=== PATIENT | female | born 1945 | race Caucasian/White ===

== ENCOUNTER → 2016-11-21 | Outpatient (CLI) | payer MEDICARE ==
--- NOTE | 2016-11-24 09:10 | Diagnostic Imaging Report ---
Bilateral screening mammogram. The current study was also evaluated with a Computer Aided Detection (CAD) system. INDICATION: Screening. No current complaints stated on the questionnaire. COMPARISON: None. This is a baseline exam. FINDINGS: The breasts are composed of heterogeneously dense parenchyma which may decrease mammographic sensitivity. There is a focal asymmetry in the upper aspect of the right breast slightly medially. It is a vague density less than 1 cm in size. There are benign-appearing calcifications seen bilaterally. No suspicious mass or cluster of calcifications seen in the left breast. IMPRESSION: Focal compression views and ultrasound evaluation for upper right breast focal asymmetry is recommended. ACR BI-RADS Category 0: Incomplete. (Needs additional imaging evaluation). Result letter will be mailed to the patient. Note: At least 10% of breast cancer is not imaged by mammography. Dictated by: Dictated on workstation # [id number]
== END ==
LOC: RAD 13:54
PROVIDERS: ATTEND Family Medicine
DX: Z12.31 Encounter for screening mammogram for malignant neoplasm of breast (principal)
CPT/HCPCS: 77067

== ENCOUNTER → 2016-11-24 | Outpatient (CLI) | payer MEDICARE ==
--- NOTE | 2016-11-24 12:09 | Diagnostic Imaging Report ---
PROCEDURE: US abdomen complete. TECHNIQUE: Multiple real-time grayscale images were obtained over the abdomen in various projections. INDICATION: Elevated liver enzymes. FINDINGS: The visualized portions of the pancreas appear unremarkable. The liver is mildly enlarged measuring 23 cm in diagonal craniocaudal dimension. There is no focal mass seen. The gallbladder demonstrates hyperechogenicity and significant shadowing compatible with stones. The gallbladder wall is minimally thickened at 3.3 mm without pericholecystic fluid. The CBD is obscured by bowel gas. The spleen is 11.3 cm in length, normal. The abdominal aorta is obscured by bowel gas. The visualized portion of the IVC appears unremarkable. The right kidney is 11.0 cm, and the left kidney is 13.2 cm in length. There is suggestion of a duplicated renal collecting system in the left kidney with no hydronephrosis. No fluid collection or ascites in the abdomen is seen. Sonographic Figueroa sign is reportedly negative. IMPRESSION: 1. Findings suggestive of gallbladder impacted with stones with no evidence of acute cholecystitis. 2. Hepatomegaly. Dictated by: Dictated on workstation # [id number]
== END ==
LOC: RAD 07:37
PROVIDERS: ATTEND Family Medicine
DX: R94.5 Abnormal results of liver function studies (principal); K80.20 Calculus of gallbladder without cholecystitis without obstruction; R16.0 Hepatomegaly, not elsewhere classified
CPT/HCPCS: 76700

== ENCOUNTER 2016-12-21 08:42 | Outpatient (CLI) | payer MEDICARE ==
[~2016-12-21] VITALS: Ht 161.3 cm; Wt 123.4 kg
[2016-12-21 08:54] VITALS: BP 162/72
[2016-12-21] MEDS ORDERED: METF500T4 PO (09:05)
[2016-12-21] MEDS ORDERED: SPIR25TA3 PO (09:05)
[2016-12-21 09:29] LABS: BASOPHILS # (AUTO) 0.1 10^3/uL (0.0-0.1); BASOPHILS % (AUTO) 1 % (0-10); EOSINOPHILS # (AUTO) 0.2 10^3/uL (0.0-0.3); EOSINOPHILS % (AUTO) 3 % (0-10); LYMPHOCYTES # (AUTO) 2.8 X 10^3 (1.0-4.0); LYMPHOCYTES % (AUTO) 33 % (12-44); MEAN CORPUSCULAR HEMOGLOBIN 31 PG (25-34); MEAN CORPUSCULAR HGB CONC 32 G/DL (32-36); MEAN CORPUSCULAR VOLUME 96 FL (80-99); MEAN PLATELET VOLUME 10.3 FL (7.4-10.4); MONOCYTES # (AUTO) 0.9 X 10^3 (0.0-1.0); MONOCYTES % (AUTO) 10 % (0-12); NEUTROPHILS # (AUTO) 4.4 X 10^3 (1.8-7.8); NEUTROPHILS % (AUTO) 53 % (42-75); PLATELET COUNT 283 10^3/uL (130-400); RED BLOOD COUNT 3.58 10^6/uL (4.35-5.85); RED CELL DISTRIBUTION WIDTH 12.4 % (10.0-14.5); WHITE BLOOD COUNT 8.3 10^3/uL (4.3-11.0)
[2016-12-21 09:45] LABS: CALCIUM 9.7 MG/DL (8.5-10.1); CREATININE SERUM 1.16 MG/DL (0.60-1.30); POTASSIUM 4.8 MMOL/L (3.6-5.0)
[2016-12-21] MEDS ORDERED: INSU100V31 IJ (13:14)
[2016-12-21] MEDS ORDERED: GLUC100016 PO (13:14)
[2016-12-21] MEDS ORDERED: BUME1TAB4 PO (13:14)
[2016-12-21] MEDS ORDERED: VALS1TAB80 PO (13:14)
[2016-12-21] MEDS ORDERED: CALC-654 PO (13:14)
[2016-12-21] MEDS ORDERED: OMEG-109 PO (13:14)
[2016-12-21] MEDS ORDERED: MAGN200T PO (13:14)
[2016-12-21] MEDS ORDERED: VERA240T98 PO (13:14)
[2016-12-21] MEDS ORDERED: NF-CARBAMX PO (13:14)
[2016-12-21] MEDS ORDERED: INSN1U SQ (13:14)
== END 2016-12-21 09:20 | disposition home or self-care (01) ==
LOC: PREOP 08:42
PROVIDERS: ATTEND Surgery Pediatric Surgery
DX: Z01.812 Encounter for preprocedural laboratory examination (principal); Z11.2 Encounter for screening for other bacterial diseases; Z12.11 Encounter for screening for malignant neoplasm of colon; K80.20 Calculus of gallbladder without cholecystitis without obstruction
CPT/HCPCS: 36415; 80048; 85025; 87081

== ENCOUNTER 2016-12-28 06:35 | Day surgery (SDC) | payer MEDICARE ==
[~2016-12-28] VITALS: Ht 161.3 cm; Wt 123.4 kg
[~2016-12-28 06:35] MED LIST: BUME1TAB4 PO; CALC-654 PO; GLUC100016 PO; INSN1U SQ; INSU100V31 IJ; MAGN200T PO; METF500T4 PO; NF-CARBAMX PO; OMEG-109 PO; SPIR25TA3 PO; VALS1TAB80 PO; VERA240T98 PO
[2016-12-28] MEDS: LACTATED RINGERS 1,000 ML IV PRN ×2 (07:00→09:40)
[2016-12-28] MEDS ORDERED: CLINDAMYCIN 600 MG/4ML (CLEOCIN) VIAL ONE ×2 (07:04→07:05)
[2016-12-28] MEDS ORDERED: ONDANSETRON 4 MG/2 ML (SDV) Z0FRAN ONE (07:05)
[2016-12-28] MEDS ORDERED: proPOfol 200 MG/20 ML (DIPRIVAN) VIAL IV ONE (07:05)
[2016-12-28] MEDS ORDERED: NS (IVPB) 50 ML ONE (07:05)
[2016-12-28] MEDS ORDERED: LIDOCAINE PF 2% 5 ML (XYLOCAINE) VIAL ONE (07:05)
[2016-12-28] MEDS ORDERED: ROCURONIUM 50 MG/5 ML (ZEMURON) VIAL IV ONE (07:05)
[2016-12-28] MEDS ORDERED: SEVOFLURANE (ULTANE) 15 ML INHAL SOLN ONE ×8 (07:05→11:14)
[2016-12-28] MEDS ORDERED: fentaNYL INJECTION 250 MCG/5 ML AMP ONE (07:06)
[2016-12-28] MEDS ORDERED: MIDAZOLAM 2 MG/2 ML (VERSED) VIAL IV ONE (07:15)
[2016-12-28 07:19] VITALS: BP 197/84
[2016-12-28] MEDS ORDERED: CLINDAMYCIN 600 MG/NS 50 ML IVPB IV ONE ×2 (07:30)
[2016-12-28] MEDS ORDERED: BUP/EPI 0.5% 1:200,000 (SENSORCAINE) 30 ML VIAL ONE (07:57)
--- NOTE | 2016-12-28 08:06 | Progress Note-Pre Operative ---
Pre-Operative Progress Note H&P Reviewed The H&P was reviewed, patient examined and no changes noted. Date H&P Reviewed: Dec 28, 2016 Time H&P Reviewed: 07:40 Pre-Operative Diagnosis: Chronic calculus cholecystitis, screening colonoscopy ADAIR RIVERA APRN Dec 28, 2016 8:06 am
[2016-12-28] MEDS ORDERED: ACETAMINOPHEN 325 MG TABLET/CAPLET (TYLENOL) PO PRN (08:15)
[2016-12-28] MEDS ORDERED: ONDANSETRON 4 MG/2 ML (SDV) Z0FRAN IVP PRN ×2 (08:15→11:30)
[2016-12-28] MEDS ORDERED: fentaNYL INJECTION 100 MCG/2 ML AMP IVP PRN (08:15)
[2016-12-28] MEDS ORDERED: HYDROcodone/APAP 5 MG/325 MG (LORTAB) TAB PO ONE (08:15)
[2016-12-28] MEDS ORDERED: morphine INJ 10 MG/ML 1ML (SYR OR VIAL) ONE (10:07)
[2016-12-28] MEDS ORDERED: GLYCOPYRROLATE 0.2 MG/ML (ROBINUL) 2 ML VIAL ONE (10:09)
[2016-12-28] MEDS ORDERED: NEOSTIGMINE (BLOXIVERZ ) 1 MG/1ML 10 ML VIAL ONE (10:09)
[2016-12-28] MEDS ORDERED: LACTATED RINGERS 1,000 ML IV ONE (10:09)
[2016-12-28] MEDS ORDERED: HYDR-3730 PO (10:14)
[2016-12-28] MEDS ORDERED: ONDN4T PO (10:14)
--- NOTE | 2016-12-28 10:17 | Discharge Inst-Surgical ---
D/C Lap Instructions-PAN New, Converted, or Re-Newed RX: RX on Chart Follow Up Appt in 2 weeks Activity as tolerated No driving for 24 hours No driving while on pain medications Incentive Spirometry use every 2 hours while awake Regular Diet Symptoms to Report: Fever over 101 degree F, Nausea/Vomiting Infection Signs and Symptoms to report: Increased redness, Foul odor of wound, Increased drainage Bathing instructions: May shower Operative Area Clean/Dry; Keep incision clean/dry If any problems/questions: Contact your physician or go to Emergency Room ZEHRA PERLA MD Dec 28, 2016 10:17 am
[2016-12-28] MEDS ORDERED: meTOprolol 5 MG/5 ML (LOPRESSOR) VIAL ONE (10:55)
--- NOTE | 2016-12-28 11:06 | Progress Note-Post Operative ---
Post-Operative Progess Note Surgeon (s)/Retail Pharmacy Manager (s) Surgeon ZEHRA PERLA MD Retail Pharmacy Manager: melva zhang BODY WORKER Pre-Operative Diagnosis Chronic calculus cholecystitis, screening colonoscopy Post-Operative Diagnosis same, chonic stage 2 ext and int hemorrhoids. Procedure & Operative Findings Date of Procedure 12/28/16 Procedure Performed/Findings laparoscopic cholecystectomy, colonoscopy Anesthesia Type GET Estimated Blood Loss Estimated blood loss (mL): minimal Specimens/Packing Specimens Removed gallbladder ZEHRA PERLA MD Dec 28, 2016 11:06 am
[2016-12-28] MEDS: morphine INJ 10 MG/ML 1ML (SYR OR VIAL) IVP PRN ×3 (11:20→11:36)
[2016-12-28 12:10] VITALS: BP 138/62
[2016-12-28 12:40] VITALS: BP 147/74
[2016-12-28 13:10] VITALS: BP 160/62
--- NOTE | 2016-12-28 13:10 | OPERATIVE REPORT ---
DATE OF SERVICE: 12/28/2016 PREOPERATIVE DIAGNOSES: Symptomatic chronic calculous cholecystitis. Screening colonoscopy. POSTOPERATIVE DIAGNOSES: Chronic calculous cholecystitis with a very large solitary stone. Chronic stage II external internal hemorrhoids. PROCEDURES: Laparoscopic cholecystectomy, colonoscopy. SURGEON: Zehra Perla MD ANESTHESIA: General endotracheal. ESTIMATED BLOOD LOSS: Minimal. FINDINGS: Chronic gallbladder wall inflammation with a very large solitary stone. There was liver steatosis as well. Chronic stage II external internal hemorrhoids, not actively edematous or inflamed and no bleeding. The remainder of the rectum and colon were normal. DISPOSITION: The patient tolerated the procedure well. INDICATIONS: The patient is a 71-year-old female who has had a pain in the right upper abdominal quadrant with radiation towards the back. She reports that the majority of time, this does occur after a meal. She had some laboratory work performed which did show slight elevation in liver function enzymes. An ultrasound was performed, which did show a large gallstone. She has not had a colonoscopy up to this point in her life. She reports that she has had a history of constipation in the past. She does not report any red blood per rectum nor any dark tarry stools. She also does not report any family history of colon cancer. DESCRIPTION OF PROCEDURE: The patient was brought to the operating room, laid supine on the table. After adequate IV pain and sedative medications and general endotracheal intubation, the abdomen was prepped and draped in standard surgical fashion. Marcaine 0.5% with epinephrine was then used to anesthetize the overlying skin in the left upper abdominal quadrant and a small transverse skin incision made using a 15 blade. An 0 silk suture was applied to the medial aspect of the incision for retraction and a Veress needle inserted with a low opening pressure of 0 mmHg. The Veress needle removed and a 5 mm Xcel trocar placed followed by a 5 mm 45 degree angle laparoscope visualizing the peritoneal cavity. A 4-quadrant abdominal exploration was performed. There was liver steatosis identified, which was moderate. There was also thick omentum and mesentery. The gallbladder was hard, indicating 1 large stone. There was mild to moderate chronic gallbladder wall inflammation. Under direct visualization, we then proceeded to place a supraumbilical 10 mm port after the skin and peritoneum were anesthetized using 0.5% Marcaine and a transverse skin incision made using a 15 blade. In a similar manner, a right upper abdominal quadrant 5 mm port was placed. The patient was then placed in reverse Trendelenburg position as well as planed right side up, left side down. The fundus of the gallbladder was retracted anteriorly and superiorly. The hepatoduodenal ligament was then opened using the hook instrument as well blunt dissection. The entire critical view of safety was identified including the triangle of Calot, including the cystic duct and artery entering the gallbladder as well as the liver bed behind the proximal gallbladder. A timeout was taken and the cystic duct and artery were then clipped proximally, distally and cut with EndoShears. The gallbladder was then dissected off the liver bed using electrocautery on the hook instrument with visualization, good hemostasis as well as no leaking ducts of Luschka. The gallbladder was removed through the 10 mm port site using an EndoCatch bag. The 10 mm port site was then closed with a running 0 Prolene suture due to having to widen the fascia to remove the stone. The abdomen was desufflated and the remaining ports removed. All skin incisions were closed using 4-0 Monocryl running subcuticular sutures. Wounds were then cleaned and covered with Dermabond. The patient tolerated this portion of the procedure well. We will start IV and oral pain medications as well as clear liquid diet. Once she is tolerating clears and has good pain control with oral pain medication and is ambulating well, we will discharge her home. She will be instructed to do no heavy lifting or exertion for the next 2 weeks. Under the same general endotracheal anesthesia, we then proceeded with the colonoscopy portion of the procedure. The legs were frog legged and a digital rectal examination was performed. Mild chronic stage II external and internal hemorrhoids were identified, which were not actively edematous or inflamed and no bleeding. Normal sphincter tone was felt and there were no palpable masses. The endoscope was then intubated to the anus and the rectum gently insufflated. The endoscope was then advanced to the valves of Whitaker of the rectum with no polyps or any neoplasms identified. The endoscope was then advanced through the sigmoid colon with no diverticulosis identified. We then proceeded through the descending, transverse and ascending colon to the cecum. These segments were normal. There were no polyps or any neoplasms identified throughout the colon or rectum. The endoscope was then slowly withdrawn, taking a second look and suctioning of residual air with no additional findings. The patient tolerated the procedure well. We will have her continue with medical management with a high-fiber diet with at least 25 grams of fiber per day as well as at least 64 fluid ounces of water daily to promote soft stools on a daily basis. She does not need another colonoscopy for another 10 years; however, sooner if any problems arise. Job ID: [id number] DocumentID: [id number] Dictated Date: 12/28/2016 11:13:34 Communications Systems Engineer Date: 12/28/2016 13:09:59 Dictated By: ZEHRA PERLA MD
[2016-12-28 13:25] VITALS: BP 160/62
== END 2016-12-28 13:25 | disposition home or self-care (01) ==
LOC: SDC 06:35
PROVIDERS: ATTEND Surgery Pediatric Surgery
DX: K80.10 Calculus of gallbladder with chronic cholecystitis without obstruction (principal); Z12.11 Encounter for screening for malignant neoplasm of colon; K64.1 Second degree hemorrhoids; K76.0 Fatty (change of) liver, not elsewhere classified; E11.9 Type 2 diabetes mellitus without complications; I10 Essential (primary) hypertension; E78.5 Hyperlipidemia, unspecified; E66.01 Morbid (severe) obesity due to excess calories; Z68.42 Body mass index [BMI] 45.0-49.9, adult; Z87.891 Personal history of nicotine dependence; Z79.4 Long term (current) use of insulin; Z79.899 Other long term (current) drug therapy
CPT/HCPCS: 47562; G0105; 82962; 88304

== ENCOUNTER → 2017-02-26 | Outpatient (CLI) | payer MEDICARE ==
[~2017-02-26] MED LIST changes: +HYDR-3730 PO; +ONDN4T PO
--- NOTE | 2017-02-26 13:23 | Diagnostic Imaging Report ---
EXAMINATION: Right breast diagnostic mammogram with tomography evaluation. The current study was also evaluated with a Computer Aided Detection (CAD) system. INDICATION: Asymmetry along the upper aspect of the right breast. FINDINGS: The right breast parenchyma is composed of scattered fibroglandular densities. There are benign-appearing calcifications seen. The previously seen asymmetry appears less prominent on focal compression views with suggestion of summation artifact of parenchyma on tomography evaluation. IMPRESSION: The upper right breast asymmetry is likely summation effect of parenchyma. An ultrasound evaluation is pending. ACR BI-RADS Category 0: Incomplete. (Needs additional imaging evaluation). Result letter will be mailed to the patient. Note: At least 10% of breast cancer is not imaged by mammography. Dictated by: Dictated on workstation # [id number]
--- NOTE | 2017-02-26 14:04 | Diagnostic Imaging Report ---
EXAMINATION: Right breast ultrasound. INDICATION: Asymmetry along the upper aspect of the right breast. FINDINGS: The four-quadrants and retroareolar region of the right breast were scanned with no underlying abnormality seen. IMPRESSION: Negative study. The asymmetry seen on mammography is likely related to summation artifact of parenchyma. Annual screening mammograms are recommended. ACR BI-RADS Category 1: Negative. Result letter will be mailed to the patient. Note: At least 10% of breast cancer is not imaged by mammography. Dictated by: Dictated on workstation # [id number]
== END ==
LOC: RAD 12:51
PROVIDERS: ATTEND Family Medicine
DX: N64.89 Other specified disorders of breast (principal)
CPT/HCPCS: 76641

== ENCOUNTER → 2020-11-12 | Outpatient (CLI) | payer MEDICARE ==
[~2020-11-12] MED LIST changes: -BUME1TAB4 PO; +BUME1TAB8 PO; +METF-397 PO; -METF500T4 PO; -SPIR25TA3 PO; +SPIR25TA5 PO; +VERA240T14 PO; -VERA240T98 PO
--- NOTE | 2020-11-15 13:46 | Diagnostic Imaging Report ---
INDICATION: Routine screening. COMPARISON is made with prior mammogram from 11/21/2016. 2-D and 3-D bilateral screening mammography was performed with CAD. Both breasts are heterogeneously dense, limiting the sensitivity of mammography. The overall parenchymal pattern appears stable. There are scattered benign parenchymal and vascular calcifications bilaterally. No dominant mass or malignant appearing microcalcifications are identified. Axillae are unremarkable. IMPRESSION: BI-RADS Category 2 No mammographic features suspicious for malignancy are identified. ACR BI-RADS Category 2: Benign findings. Result letter will be mailed to the patient. Note: At least 10% of breast cancer is not imaged by mammography. Dictated by: Dictated on workstation # [id number]
== END ==
LOC: RAD 14:01
PROVIDERS: ATTEND Nurse Practitioner Family
DX: Z12.31 Encounter for screening mammogram for malignant neoplasm of breast (principal)
CPT/HCPCS: 77063; 77067